=== PATIENT | male | born 1970 | race Caucasian/White ===

== ENCOUNTER → 2019-04-04 | Outpatient (CLI) | payer OTHER | LOC: COL.RAD 13:19 | DX: M47.816 Spondylosis without myelopathy or radiculopathy, lumbar region (principal); M48.07 Spinal stenosis, lumbosacral region; M51.25 Other intervertebral disc displacement, thoracolumbar region; Q76.49 Other congenital malformations of spine, not associated with scoliosis ==

== ENCOUNTER → 2021-09-16 | Outpatient (CLI) | payer OTHER | LOC: COL.RAD 08-26 09:00 | DX: M25.461 Effusion, right knee (principal); M17.11 Unilateral primary osteoarthritis, right knee | CPT/HCPCS: A9585 ==